=== PATIENT | female | born 1950 | race Caucasian/White ===

== ENCOUNTER 2019-11-27 11:27 | Emergency (ER) | payer MEDICARE, BC ==
--- NOTE | 2019-11-27 12:03 | EDM.PDOC ---
ED HPI GENERAL MEDICAL PROBLEM - General Chief Complaint: Skin Complaint Stated Complaint: BUG BITE RIGHT BREAST Time Seen by Provider: 11/27/19 11:57 Source of Information: Reports: Patient, Other (friend) History Limitations: Reports: No Limitations - History of Present Illness INITIAL COMMENTS - FREE TEXT/NARRATIVE: 69 year old female present to [place] [facility] with a friend for evaluation due to big bite on right medial anterior breast which occurred a few days ago due to a mayfly bite. The area is irritated and itching but not painful. Patient has not take any medications for pain or itching or insect bite. Patient has other systemic symptoms likely chills, sweats, fatigue and general malaise which has been going on the for the same amount of time as the insect bited. Patient adamantly denies tick bite or risk for tick borne illness. Patient feel too tired to work due to general fatigue and malaise. 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 After further questioning, patient admits to dysuria, urinary frequency and urgency which started a few weeks ago and getting worse. Patient has had mild headache which is too out of normal for her. Patient states her appetite has decreased over the same period of time. - Related Data Allergies Allergy/AdvReac Type Severity Reaction Status Date / Time No Known Allergies Allergy Verified 11/27/19 11:46 Home Meds: Home Meds Ibuprofen [Advil] 400 mg PO Q6H 12/09/15 [History] Latanoprost [Xalatan 0.005% Ophth Soln] 2.5 ml EYEBOTH BEDTIME 12/09/15 [History] timoloL maleate [Timoptic 0.5% Ophth Soln] 1 drop EYEBOTH BID 12/09/15 [History] Potassium Chloride [Klor-Con M20] 20 meq PO DAILY 5 Days #5 tab.er.prt 11/27/19 [Rx] cephALEXin [Keflex] 500 mg PO QID 10 Days #30 capsule 11/27/19 [Rx] Past Medical History HEENT History: Reports: Glaucoma Cardiovascular History: Reports: None Respiratory History: Reports: None Genitourinary History: Reports: Other (See Below) Other Genitourinary History: 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: Musculoskeletal History: Reports: Arthritis - Infectious Disease History Infectious Disease History: Reports: Chicken Pox, Measles, Shingles - Past Surgical History Head Surgeries/Procedures: Reports: None HEENT Surgical History: Reports: Eye Surgery GI Surgical History: Reports: Appendectomy, Cholecystectomy, EGD Female Surgical History: Reports: Tubal Ligation Social & Family History - Tobacco Use Smoking Status *Q: Never Smoker - Caffeine Use Caffeine Use: Reports: Soda - Recreational Drug Use Recreational Drug Use: No ED ROS GENERAL - Review of Systems Review Of Systems: Comprehensive ROS is negative, except as noted in HPI. ED EXAM, SKIN/RASH Exam: See Below Exam Limited By: No Limitations (patient minimizes symptoms and concerns) General Appearance: Alert, WD/WN, Mild Distress (uncomfortable with malaise and general fatigue) Eye Exam: Bilateral Eye: EOMI, Normal Inspection Ears: Normal External Exam, Hearing Grossly Normal Nose: Normal Inspection Throat/Mouth: Normal Inspection, Normal Voice, No Airway Compromise Head: Atraumatic Neck: Normal Inspection, Supple, Full Range of Motion Respiratory/Chest: No Respiratory Distress, Lungs Clear, Normal Breath Sounds, Chest Non-Tender, Other (right breast: small open wound superior midline (scratched off scab).) Cardiovascular: Normal Peripheral Pulses, Regular Rate, Rhythm GI/Abdominal: Tender (suprapubic discomfort noted) (Female) Exam: Deferred Rectal (Female) Exam: Deferred Back Exam: CVA Tenderness (R) (left worse than right), CVA Tenderness (L) Extremities: Normal Inspection, Normal Range of Motion, Non-Tender, Normal Capillary Refill, Pedal Edema (slight but not new) Neurological: Alert, Oriented, CN II-XII Intact, Normal Cognition, Normal Gait Psychiatric: Normal Affect, Normal Mood Location, Skin: Other EKG INTERPRETATION EKG Date: 11/27/19 Time: 12:54 Rhythm: NSR [place]: LAD-Left [place] Deviation P-Wave: Present QRS: Normal ST-T: Other (non-specific) QT: Normal Course - Vital Signs Last Recorded V/S: Last Vital Signs Temp 36.7 C 11/27/19 11:49 Pulse 68 11/27/19 14:08 Resp 16 11/27/19 14:08 BP 120/66 11/27/19 14:08 Pulse Ox 98 06/21/20 14:08 - Orders/Labs/Meds Orders: Active Orders 24 hr Category Date Time Status EKG Documentation Completion [RC] ASDIRECTED Care 11/27/19 14:32 Active Peripheral IV Care [RC] . DIRECTED Care 11/27/19 13:36 Active BABESIA MICROTI ANTIBODY PANEL Urgent Lab 11/27/19 14:07 Received CULTURE URINE [RM] Stat Lab 11/27/19 14:21 Received HUMAN GRANULOCYTIC JOSE-HGE Urgent Lab 11/27/19 14:07 Received LYME, TOTAL AB TEST/REFLEX Routine Lab 11/27/19 14:07 Received Sodium Chloride 0.9% [Normal Saline] 1,000 ml Med 11/27/19 13:45 Active IV ASDIRECTED Sodium Chloride 0.9% [Saline Flush] Med 11/27/19 13:36 Active 10 ml FLUSH ASDIRECTED PRN Peripheral IV Insertion Adult [OM.PC] Urgent Oth 11/27/19 12:07 Ordered Peripheral IV Insertion Adult [OM.PC] Urgent Oth 11/27/19 13:36 Ordered EKG 12 Lead [EK] Urgent Ther 11/27/19 14:32 Ordered Medication Orders Sodium Chloride (Normal Saline) 1,000 mls @ 500 mls/hr IV ASDIRECTED LIZETH Last Admin: 11/27/19 14:07 Dose: 500 mls/hr Documented by: PREILOR Sodium Chloride (Saline Flush) 10 ml FLUSH ASDIRECTED PRN PRN Reason: Keep Vein Open Labs: Laboratory Tests 11/27/19 11/27/19 11/27/19 Range/Units 12:21 12:21 12:21 WBC 3.6 L (4.5-11.0) K/uL RBC 5.42 (3.30-5.50) M/uL Hgb 15.9 H (12.0-15.0) g/dL Hct 44.8 (36.0-48.0) % MCV 83 (80-98) fL MCH 29 (27-31) pg MCHC 36 (32-36) % Plt Count 78 L (150-400) K/uL Neut % (Auto) 32 L (36-66) % Lymph % (Auto) 50 H (24-44) % [place] % (Auto) 10 H (2-6) % Eos % (Auto) 0 L (2-4) % Baso % (Auto) 7 H (0-1) % Sodium 135 L (140-148) mmol/L Potassium 2.8 L* (3.6-5.2) mmol/L Chloride 98 L (100-108) mmol/L Carbon Dioxide 24 (21-32) mmol/L Anion Gap 15.8 H (5.0-14.0) mmol/L BUN 23 H D (7-18) mg/dL Creatinine 0.9 (0.6-1.0) mg/dL Est Cr Clr Drug Dosing 43.26 mL/min Estimated GFR (MDRD) > 60 (>60) Glucose 249 H (74-106) mg/dL Lactic Acid (0.4-2.0) mmol/L Calcium 9.1 (8.5-10.1) mg/dL Magnesium 2.0 (1.8-2.4) mg/dL Total Bilirubin 1.1 H (0.2-1.0) mg/dL AST 65 H D (15-37) U/L ALT 76 D (12-78) U/L Alkaline Phosphatase 97 (46-116) U/L Total Protein 7.1 (6.4-8.2) g/dL Albumin 3.4 (3.4-5.0) g/dL Globulin 3.7 H (2.3-3.5) g/dL Albumin/Globulin Ratio 0.9 L (1.2-2.2) Urine Color (YELLOW) Urine Appearance (CLEAR) Urine pH (5.0-8.0) Ur Specific [place] (1.008-1.030) Urine Protein (NEGATIVE) mg/dL Urine Glucose (UA) (NEGATIVE) mg/dL Urine Ketones (NEGATIVE) mg/dL Urine Occult Blood (NEGATIVE) Urine Nitrite (NEGATIVE) Urine Bilirubin (NEGATIVE) Urine Urobilinogen (0.2-1.0) EU/dL Ur Leukocyte Esterase (NEGATIVE) Urine RBC (0-5) Urine WBC (0-5) Ur Epithelial Cells Urine Bacteria 11/27/19 11/27/19 Range/Units 12:21 14:21 WBC (4.5-11.0) K/uL RBC (3.30-5.50) M/uL Hgb (12.0-15.0) g/dL Hct (36.0-48.0) % MCV (80-98) fL MCH (27-31) pg MCHC (32-36) % Plt Count (150-400) K/uL Neut % (Auto) (36-66) % Lymph % (Auto) (24-44) % [place] % (Auto) (2-6) % Eos % (Auto) (2-4) % Baso % (Auto) (0-1) % Sodium (140-148) mmol/L Potassium (3.6-5.2) mmol/L Chloride (100-108) mmol/L Carbon Dioxide (21-32) mmol/L Anion Gap (5.0-14.0) mmol/L BUN (7-18) mg/dL Creatinine (0.6-1.0) mg/dL Est Cr Clr Drug Dosing mL/min Estimated GFR (MDRD) (>60) Glucose (74-106) mg/dL Lactic Acid 1.5 (0.4-2.0) mmol/L Calcium (8.5-10.1) mg/dL Magnesium (1.8-2.4) mg/dL Total Bilirubin (0.2-1.0) mg/dL AST (15-37) U/L ALT (12-78) U/L Alkaline Phosphatase (46-116) U/L Total Protein (6.4-8.2) g/dL Albumin (3.4-5.0) g/dL Globulin (2.3-3.5) g/dL Albumin/Globulin Ratio (1.2-2.2) Urine Color Other A (YELLOW) Urine Appearance Slightly cloudy A (CLEAR) Urine pH 5.5 (5.0-8.0) Ur Specific [place] 1.015 (1.008-1.030) Urine Protein 100 H (NEGATIVE) mg/dL Urine Glucose (UA) Negative (NEGATIVE) mg/dL Urine Ketones 15 H (NEGATIVE) mg/dL Urine Occult Blood Small H (NEGATIVE) Urine Nitrite Negative (NEGATIVE) Urine Bilirubin Moderate H (NEGATIVE) Urine Urobilinogen 1.0 (0.2-1.0) EU/dL Ur Leukocyte Esterase Large H (NEGATIVE) Urine RBC Not seen (0-5) Urine WBC >100 H (0-5) Ur Epithelial Cells Not seen Urine Bacteria Many Meds: Medications Generic Name Dose Route Start Last Admin Trade Name Hao PRN Reason Stop Dose Admin Sodium Chloride 1,000 mls @ 500 mls/hr 11/27/19 13:45 11/27/19 14:07 Normal Saline IV 500 mls/hr ASDIRECTED LIZETH Administration Sodium Chloride 10 ml 11/27/19 13:36 Saline Flush FLUSH ASDIRECTED PRN Keep Vein Open Discontinued Medications Generic Name Dose Route Start Last Admin Trade Name Hao PRN Reason Stop Dose Admin Acetaminophen 325 mg 11/27/19 16:16 11/27/19 16:42 Tylenol PO 11/27/19 16:17 325 mg NOW ONE Administration Acetaminophen 325 mg 11/27/19 16:38 11/27/19 16:42 Tylenol PO 11/27/19 16:39 325 mg NOW ONE Administration Ceftriaxone Sodium 2 gm/ 50 mls @ 100 mls/hr 11/27/19 15:11 11/27/19 15:23 Sodium Chloride IV 11/27/19 15:40 100 mls/hr ONETIME ONE Administration Potassium Chloride 20 meq 11/27/19 13:24 11/27/19 13:50 Klor-Con M20 PO 11/27/19 13:25 20 meq ONETIME ONE Administration Sodium Chloride 10 ml 11/27/19 12:07 Saline Flush FLUSH ASDIRECTED PRN Keep Vein Open - Re-Assessments/Exams Free Text/Narrative Re-Assessment/Exam: Potassium reading was low 2.8. K Dur 20 meq given oral. EKG was completed: No acute changes noted. Blood Sugar is above 200 which is concerning for type II diabetes vs metabolic dysfunction. 11/27/19 14:45 Urine appears to be infected with increased likelihood of renal involvement with additional symptoms during visit. Patient was given Rocephin 2GM IV x 1. Patient offered something to eat but declined due to poor appetite. Patient tolerated Rocephin, Tylenol, Potassium po and IVF well. 11/27/19 15:20 Patient is feeling much improved after IVF, IV antibiotics and time. Reviewed abnormal test result including: elevated blood sugar, low potassium with lower platelets/WBC and slight elevation of LFTs so tick borne illness may be the course of general malaise and fatigue. Discussed note for work this week until follow-up with Dr Silverman him will likely need to repeat blood test, review urine culture and tick borne disease testing and recheck insect bite for resolution. Patient notes she has also had very eatery stools over the last few weeks with decreased appetite. 11/27/19 17:13 Departure - Departure Time of Disposition: 16:47 Disposition: Home, Self-Care 01 Clinical Impression: Kidney infection, Insect bite, Hypokalemia, Hyperglycemia - Discharge Information Prescriptions: cephALEXin [Keflex] 500 mg PO QID 10 Days #30 capsule Potassium Chloride [Klor-Con M20] 20 meq PO DAILY 5 Days #5 tab.er.prt Instructions: Pyelonephritis, Adult, Pyelonephritis, Adult, [id number], Hypokalemia, Potassium Content of Foods, Insect Bite, Adult Referrals: Corbin Silverman MD [Primary Care Provider] - Forms: ED Department Discharge Additional Instructions: 1. Keflex 500mg QID x 10 days for urinary tract infection likely progressed to kidney infection with symptoms and urine test results. 2. Rocephin 2 GM given during ER visit. Start oral antibiotic this evening. 3. Potassium 20 meq daily x 5 days with repeat blood work later this week and review urine culture results. 4. NO work until follow-up appointment with Dr Silverman this week. 5. Increased fluid intake. Return to ER sooner if unable to keep medications down or vomiting occurs. 6. Some people need hospitalization for your presenting symptoms today 7. Topica hydrocortisone cream to right breast in sect bite every 12 hours x 14 days. 8. Follow-up with PCP regarding tick borne illness blood work drawn today. Sepsis Event Note (ED) - Evaluation Sepsis Screening Result: No Definite Risk - Focused Exam Vital Signs: Vital Signs Temp Pulse Resp BP Pulse Ox 11/27/19 14:08 68 16 120/66 98 11/27/19 11:49 36.7 C 71 16 115/79 96 11/27/19 11:46 36.7 C 71 16 115/79 96 11/27/19 11:41 36.7 C 71 16 115/79 96 - My Orders Last 24 Hours: My Active Orders 11/27/19 12:07 Peripheral IV Insertion Adult [OM.PC] Urgent 11/27/19 13:36 Peripheral IV Care [RC] . DIRECTED Sodium Chloride 0.9% [Saline Flush] 10 ml FLUSH ASDIRECTED PRN Peripheral IV Insertion Adult [OM.PC] Urgent 11/27/19 13:45 Sodium Chloride 0.9% [Normal Saline] 1,000 ml IV ASDIRECTED 11/27/19 14:07 BABESIA MICROTI ANTIBODY PANEL Urgent HUMAN GRANULOCYTIC JOSE-HGE Urgent LYME, TOTAL AB TEST/REFLEX Routine 11/27/19 14:21 CULTURE URINE [RM] Stat 11/27/19 14:32 EKG Documentation Completion [RC] ASDIRECTED EKG 12 Lead [EK] Urgent - Assessment/Plan Last 24 Hours: My Active Orders 11/27/19 12:07 Peripheral IV Insertion Adult [OM.PC] Urgent 11/27/19 13:36 Peripheral IV Care [RC] . DIRECTED Sodium Chloride 0.9% [Saline Flush] 10 ml FLUSH ASDIRECTED PRN Peripheral IV Insertion Adult [OM.PC] Urgent 11/27/19 13:45 Sodium Chloride 0.9% [Normal Saline] 1,000 ml IV ASDIRECTED 11/27/19 14:07 BABESIA MICROTI ANTIBODY PANEL Urgent HUMAN GRANULOCYTIC JOSE-HGE Urgent LYME, TOTAL AB TEST/REFLEX Routine 11/27/19 14:21 CULTURE URINE [RM] Stat 11/27/19 14:32 EKG Documentation Completion [RC] ASDIRECTED EKG 12 Lead [EK] Urgent
[2019-11-27] MEDS ORDERED: Sodium Chloride 0.9% 10 ML Syringe FLUSH PRN ×2 (12:07→13:36)
[2019-11-27] MEDS ORDERED: Potassium Chloride 20 MEQ Tab.ER PO ONE (13:24)
[2019-11-27] MEDS ORDERED: Sodium Chloride 0.9% 1,000 ML IV SCH (13:45)
[2019-11-27 14:09] VITALS: BP 120/66; PULSE 68
[2019-11-27] MEDS ORDERED: cefTRIAXone 2 GM in Sodium Chloride 0.9% 50 ML IV ONE (15:11)
[2019-11-27] MEDS ORDERED: Acetaminophen 325 MG Tab PO ONE ×2 (16:16→16:38)
[2019-11-30 11:11] LABS: LYME IGG/IGM AB <0.91 ISR (0.00-0.90)
[2019-11-30 14:11] LABS: HGE IGG TITER Negative (Neg:<1:64); HGE IGM TITER Negative (Neg:<1:20)
[2019-12-01 17:13] LABS: BABESIA MICROTI IGM 1:20 (Neg:<1:10)
== END 2019-11-27 17:17 | disposition home or self-care (01) ==
LOC: JP.ED 11:27
DX: S20.161A Insect bite (nonvenomous) of breast, right breast, initial encounter (principal); E87.6 Hypokalemia; R73.9 Hyperglycemia, unspecified; N15.9 Renal tubulo-interstitial disease, unspecified; M19.90 Unspecified osteoarthritis, unspecified site; W57.XXXA Bitten or stung by nonvenomous insect and other nonvenomous arthropods, initial encounter
CPT/HCPCS: 36415; 80053; 81001; 83605; 83735; 85025; 86618; 86666; 86753; 87086; 87088; 87186; 93005; 96361; 96365; 99283; A9270; J0696; J7030; J7050; 93010

== ENCOUNTER 2019-12-09 16:23 | Emergency (ER) | payer MEDICARE, BC ==
[2019-12-09 17:36] VITALS: BP 149/69; PULSE 84
--- NOTE | 2019-12-09 18:23 | EDM.PDOC ---
ED HPI GENERAL MEDICAL PROBLEM - General Chief Complaint: Genitourinary Problem Stated Complaint: LOWER BACK PAIN Time Seen by Provider: 12/09/19 17:55 Source of Information: Reports: Patient, Family History Limitations: Reports: No Limitations - History of Present Illness INITIAL COMMENTS - FREE TEXT/NARRATIVE: 69-year-old female who was seen 3 weeks ago with a UTI, grew E. coli and was placed on cephalexin was better but finished the medication on Thursday, 4 days ago. This morning she started having increasing urinary frequency and some vague lower back discomfort and right flank pain. No significant dysuria, just some "itching". No fever or chills, no nausea or vomiting, she does not feel real ill. Onset: Gradual Duration: Hour(s): (Symptoms for 12 hours) Location: Reports: Back (Lower back and mild right flank discomfort) Associated Symptoms: Denies: Chest Pain, Cough, Fever/Chills, Headaches, Malaise, Nausea/Vomiting, Shortness of Breath, Weakness Bilateral Flank Pain Score (Numeric/FACES): 8 - Related Data Allergies Allergy/AdvReac Type Severity Reaction Status Date / Time No Known Allergies Allergy Verified 12/09/19 17:44 Home Meds: Home Meds Ibuprofen [Advil] 400 mg PO Q6H 12/09/15 [History] Latanoprost [Xalatan 0.005% Ophth Soln] 2.5 ml EYEBOTH BEDTIME 12/09/15 [History] timoloL maleate [Timoptic 0.5% Ophth Soln] 1 drop EYEBOTH BID 12/09/15 [History] Past Medical History HEENT History: Reports: Glaucoma Cardiovascular History: Reports: None Respiratory History: Reports: None Gastrointestinal History: Reports: None Genitourinary History: Reports: Other (See Below) Other Genitourinary History: 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: Musculoskeletal History: Reports: Arthritis - Infectious Disease History Infectious Disease History: Reports: Chicken Pox, Measles, Shingles - Past Surgical History Head Surgeries/Procedures: Reports: None HEENT Surgical History: Reports: Eye Surgery GI Surgical History: Reports: Appendectomy, Cholecystectomy, EGD Female Surgical History: Reports: Tubal Ligation Musculoskeletal Surgical History: Reports: None Dermatological Surgical History: Reports: None Social & Family History - Tobacco Use Smoking Status *Q: Never Smoker Second Hand Smoke Exposure: No - Caffeine Use Caffeine Use: Reports: Coffee - Recreational Drug Use Recreational Drug Use: No ED ROS GENERAL - Review of Systems Review Of Systems: See Below Constitutional: Denies: Fever, Malaise, Decreased Appetite HEENT: Reports: No Symptoms Respiratory: Denies: Shortness of Breath Cardiovascular: Denies: Chest Pain GI/Abdominal: Denies: Abdominal Pain, Nausea, Vomiting : Reports: Flank Pain (Right side), Frequency Musculoskeletal: Reports: Back Pain Skin: Reports: No Symptoms Neurological: Reports: No Symptoms ED EXAM, GENERAL - Physical Exam Exam: See Below Exam Limited By: No Limitations General Appearance: Alert, No Apparent Distress, Other Head: Atraumatic Respiratory/Chest: No Respiratory Distress, Lungs Clear GI/Abdominal: Non-Tender Back Exam: Other (She does react to some discomfort with percussion of the right flank, and has bilateral lower LS paralumbar discomfort) Neurological: Alert, Oriented Skin Exam: Warm, Dry Course - Vital Signs Last Recorded V/S: Last Vital Signs Temp 98.0 F 12/09/19 17:42 Pulse 84 12/09/19 17:42 Resp 15 12/09/19 17:42 BP 149/69 H 12/09/19 17:42 Pulse Ox 96 12/09/19 17:42 - Orders/Labs/Meds Orders: Active Orders 24 hr Category Date Time Status CULTURE URINE [RM] Stat Lab 12/09/19 18:23 Received Labs: Laboratory Tests 12/09/19 Range/Units 17:55 Urine Color Yellow (YELLOW) Urine Appearance Cloudy A (CLEAR) Urine pH 6.5 (5.0-8.0) Ur Specific [place] 1.025 (1.008-1.030) Urine Protein Trace H (NEGATIVE) mg/dL Urine Glucose (UA) Negative (NEGATIVE) mg/dL Urine Ketones 40 H (NEGATIVE) mg/dL Urine Occult Blood Small H (NEGATIVE) Urine Nitrite Negative (NEGATIVE) Urine Bilirubin Small H (NEGATIVE) Urine Urobilinogen 1.0 (0.2-1.0) EU/dL Ur Leukocyte Esterase Large H (NEGATIVE) Urine RBC 0-5 (0-5) Urine WBC 75-100 H (0-5) Ur Epithelial Cells Many Amorphous Sediment Many Urine Bacteria Moderate Urine Mucus Moderate - Re-Assessments/Exams Free Text/Narrative Re-Assessment/Exam: 12/09/19 18:22 UA again shows significant WBCs and bacteria. A culture was reinitiated the patient was placed on Macrobid twice daily for the next 7 days. She will recheck in 3 to 4 days if not improving satisfactorily or return sooner if worsening such as fever or vomiting. Departure - Departure Time of Disposition: 18:43 Disposition: Home, Self-Care 01 Clinical Impression: UTI, Urinary tract infectious disease - Discharge Information Instructions: Urinary Tract Infection, Adult, [id number] Referrals: Corbin Silverman MD [Primary Care Provider] - Forms: ED Department Discharge Care Plan Goals: Take antibiotic until gone, stay hydrated with water and increase activity and diet as tolerated. Recheck in 3 to 4 days if not improving satisfactorily, or consider rechecking sooner if worsening such as fever, vomiting or increased pain. Sepsis Event Note (ED) - Evaluation Sepsis Screening Result: No Definite Risk - Focused Exam Vital Signs: Vital Signs Temp Pulse Resp BP Pulse Ox 12/09/19 17:42 98.0 F 84 15 149/69 H 96 12/09/19 17:35 98.0 F 84 15 149/69 H 96 - My Orders Last 24 Hours: My Active Orders 12/09/19 18:23 CULTURE URINE [RM] Stat - Assessment/Plan Last 24 Hours: My Active Orders 12/09/19 18:23 CULTURE URINE [RM] Stat
== END 2019-12-09 18:43 | disposition home or self-care (01) ==
LOC: JP.ED 16:23
DX: N39.0 Urinary tract infection, site not specified (principal); Z79.899 Other long term (current) drug therapy
CPT/HCPCS: 81001; 87086; 87088; 87186; 99283

== ENCOUNTER 2020-01-10 07:11 | Day surgery (SDC) | payer MEDICARE, BC ==
[~2020-01-10 07:11] MED LIST: Midazolam 1 MG/ML 2 ML SDV ONE; Propofol 200 MG/20 ML SDV ONE; fentaNYL 100 MCG/2 ML SDV ONE
[2020-01-10] MEDS ORDERED: Dextrose 5%-Lactated Ringers 1,000 ML IV SCH (07:45)
[2020-01-10 09:09] VITALS: BP 123/58; PULSE 51
--- NOTE | 2020-01-16 13:56 | OR ---
DATE OF PROCEDURE: 01/10/2020 SURGEON: Abdoulaye Washington MD PREOPERATIVE DIAGNOSES: Family history of colon carcinoma and personal history of colon polyps. POSTOPERATIVE DIAGNOSES: 1. Uncomplicated left diverticulosis. 2. No evidence of recurrent polyps. OPERATIVE PROCEDURE: Flexible colonoscopy. ANESTHESIA: IV sedation. INDICATION FOR PROCEDURE: A 69-year-old presenting for followup colonoscopy. She has a family history of colon carcinoma as well as personal history of colon polyps in the past. Plan is to proceed with a colonoscopy with biopsies and/or polypectomy as indicated. Potential risks including bleeding and perforation were discussed and the patient wishes to proceed. DETAILS OF PROCEDURE: The patient was taken to the operating room and the patient placed in the left lateral decubitus position. IV sedation was administered after which the initial digital rectal exam was performed and was unremarkable. Colonoscope was then passed into the rectum with retroflexion revealing uncomplicated hemorrhoidal columns. The scope was eventually passed to the level of the cecum. The prep was quite good with only a small amount of liquid stool being present. To that level, there was some uncomplicated diverticulosis on the left colon. Otherwise, there are no areas of colitis and/or polyps or other signs of neoplasia. The scope was then withdrawn, the above findings reconfirmed, and the procedure concluded. The patient was taken to the recovery room in satisfactory condition. Recommendation would be to repeat the colonoscopy in 5 years. Abdoulaye Washington MD /[id number]
== END 2020-01-10 09:24 | disposition home or self-care (01) ==
LOC: JP.SDS 07:11
PROVIDERS: ATTEND Surgery
DX: Z12.11 Encounter for screening for malignant neoplasm of colon (principal); K57.30 Diverticulosis of large intestine without perforation or abscess without bleeding; K64.9 Unspecified hemorrhoids; Z80.0 Family history of malignant neoplasm of digestive organs; Z86.010 Personal history of colon polyps
CPT/HCPCS: G0105; J2250; J2704; J3010; J7121

== ENCOUNTER 2020-01-23 07:20 | Inpatient (IN) | payer MEDICARE, BC ==
[~2020-01-23 07:20] MED LIST changes: +Dexamethasone 4 MG/ML SDV ONE; +Glycopyrrolate 0.2 MG/ML 5 ML MDV ONE; +Isosulfan Blue 5 ML SDV ONE; -Midazolam 1 MG/ML 2 ML SDV ONE; +Neostigmine Methylsulfate 1 MG/ML 5 ML Syringe ONE; +Ondansetron 4 MG/2 ML SDV ONE; +Rocuronium 50 MG/5 ML Vial ONE; +Succinylcholine 200 MG/10 ML MDV ONE; -fentaNYL 100 MCG/2 ML SDV ONE; +fentaNYL 250 MCG/5 ML SDV ONE
[2020-01-23] MEDS ORDERED: Acetaminophen 500 MG Tab PO ONE (07:30)
[2020-01-23] MEDS ORDERED: ceFAZolin 2 GM in Premix Bag 1 BAG IV ONE (08:00)
[2020-01-23] MEDS: Dextrose 5%-Lactated Ringers 1,000 ML IV SCH ×2 (08:49→18:18)
--- NOTE | 2020-01-23 09:55 | CR ---
CHEST: 2 view CLINICAL HISTORY:History of breast cancer COMPARISON:Rib study 2009 FINDINGS: The heart size, pulmonary vascularity and hilar structures are normal. No infiltrate effusion or pneumothorax is seen. There is an ovoid subcentimeter nodular density in the right infrahilar region. This is superimposed the end of the extruded. IMPRESSION: No acute infiltrate Right lung base nodular density. This may represent superimposition. Pulmonary nodules not excluded. CT chest without contrast should be considered
[2020-01-23] MEDS ORDERED: Naloxone 0.4 MG/ML SDV IVPUSH PRN (09:58)
[2020-01-23] MEDS ORDERED: HYDROmorphone/Normal Saline 15 MG/30 ML PCA IV PRN (09:58)
[2020-01-23] MEDS ORDERED: Sodium Chloride 0.9% 10 ML ONE (10:07)
[2020-01-23] MEDS ORDERED: ceFAZolin 1 GM Vial ONE (10:07)
[2020-01-23] MEDS ORDERED: fentaNYL 250 MCG/5 ML SDV ONE ×2 (10:15→11:13)
[2020-01-23] MEDS ORDERED: Lactated Ringers 1,000 ML ONE (10:52)
[2020-01-23] MEDS ORDERED: Naloxone 0.4 MG/ML SDV IV PRN (11:00)
[2020-01-23] MEDS ORDERED: hydrOXYzine HCL 100 MG/2 ML SDV IM PRN (12:38)
[2020-01-23] MEDS ORDERED: Ondansetron 4 MG/2 ML SDV IVPUSH PRN (12:40)
[2020-01-23] MEDS: Acetaminophen 500 MG Tab PO SCH ×2 (16:14→23:34)
[2020-01-23] MEDS: ceFAZolin 2 GM in Premix Bag 1 BAG IV SCH (18:19)
[2020-01-23] MEDS ORDERED: Tranexamic Acid 750 MG in Sodium Chloride 0.9% 50 ML IV ONE (19:00)
[2020-01-23] MEDS: LATANOPROST 0.005% EYEBOTH SCH (20:07)
[2020-01-23] MEDS: Timolol Maleate 0.5% Ophth Soln 5 ML (PTOM) EYEBOTH SCH (20:08)
[2020-01-23] MEDS ORDERED: Latanoprost 0.005% Ophth Soln 2.5 ML Bottle EYEBOTH SCH (21:00)
[2020-01-23] MEDS ORDERED: Timolol Maleate 0.5% Ophth Soln 5 ML Bottle EYEBOTH SCH (21:00)
[2020-01-23] MEDS ORDERED: Ciprofloxacin 0.3% Ophth Soln 5 ML Bottle EYEBOTH SCH (21:00)
[2020-01-24] MEDS: ceFAZolin 2 GM in Premix Bag 1 BAG IV SCH ×2 (03:20→09:57)
[2020-01-24] MEDS: Dextrose 5%-Lactated Ringers 1,000 ML IV SCH (05:40)
[2020-01-24] MEDS ORDERED: HYDROmorphone 2 MG Tab PO PRN (07:09)
[2020-01-24] MEDS: Acetaminophen 160 MG Tab,Disintegrating PO SCH ×3 (08:20→20:22)
[2020-01-24] MEDS: Timolol Maleate 0.5% Ophth Soln 5 ML (PTOM) EYEBOTH SCH ×2 (08:20→20:22)
[2020-01-24] MEDS: DORZOLAMIDE 2% EYERT SCH (08:20)
--- NOTE | 2020-01-24 10:24 | PN ---
DATE OF SERVICE: 01/24/2020 SUBJECTIVE: Carola is postop day 1. She states her pain is controlled. She has no questions or concerns. Vital signs have been stable. She has been up ambulating. REVIEW OF SYSTEMS: Remainder of review of systems negative for any pertinent positives and negatives. OBJECTIVE: GENERAL: Carola is a pleasant 69-year-old female. She is alert and oriented. VITAL SIGNS: TPR at 0321, 97.5, 54, 16, blood pressure 102/38. HEENT: Negative. NECK: Supple. HEART: Regular rate and rhythm. LUNGS: Clear. ABDOMEN: Soft, nontender. EXTREMITIES: Without peripheral edema. The dressing dry and intact. SHILPA drain 1 and 2 put out 120 and 185 respectively. ASSESSMENT: 1. Right modified radical mastectomy with frozen section. 2. Injection procedure for identification of sentinel lymph node. POSTOPERATIVE DIAGNOSIS: Right breast cancer with extensive metastatic axillary lymph node. Date of surgery: 01/23/2020. Surgeon: Abdoulaye Washington MD. PLAN: 1. Saline lock IV if oral intake adequate. 2. Regular diet. 3. Discontinue BANK COURIER. Continuous pulse ox. 4. Scheduled Tylenol 650 mg every 6 hours scheduled. 5. Dilaudid 2 mg 1 to 2 every 4 hours p.r.n. pain. Continue use of incentive spirometer. 6. We will evaluate p.r.n. or in a.m. Daria Rahman PA-C /[id number]
[2020-01-24] MEDS: LATANOPROST 0.005% EYEBOTH SCH (20:22)
[2020-01-25] MEDS: Acetaminophen 160 MG Tab,Disintegrating PO SCH ×2 (01:52→09:10)
[2020-01-25] MEDS: DORZOLAMIDE 2% EYERT SCH (09:13)
[2020-01-25] MEDS: Timolol Maleate 0.5% Ophth Soln 5 ML (PTOM) EYEBOTH SCH (09:13)
[2020-01-25 10:43] VITALS: BP 125/45; PULSE 69
--- NOTE | 2020-01-25 20:11 | DISCH ---
ADMISSION DIAGNOSES: 1. Right breast cancer. 2. Chronic back pain. DISCHARGE DIAGNOSES: 1. Right modified radical mastectomy with frozen section. 2. Injection procedure for identification of sentinel lymph nodes. POSTOPERATIVE DIAGNOSIS: Right breast cancer with extensive metastatic axillary lymph nodes. Date of surgery 01/23/2020. Surgeon: Abdoulaye Washington MD. HISTORY: Carola Garcia is a pleasant 69-year-old female who had a positive biopsy on her right breast for cancer. After preoperative evaluation and discussion of possible risks and possible complications, she wished to proceed with surgical procedure. HOSPITAL COURSE: Carola had her surgery on 01/23/2020. She had no operative complications. On postoperative day #1, she was changed to oral pain medication. She was taught how to strip, drain, empty and measure her SHILPA drains. Her activity was good. Pain was managed with Tylenol and she was able to be discharged to home on postoperative day 2. PHYSICAL EXAMINATION: GENERAL: Carola Garcia is a 69-year-old female. VITAL SIGNS: Height 4 feet, 11.84 inches. Weight is 145 pounds. TPR at 0700 is 97.8, 77, 16. Blood pressure 125/58. HEENT: Negative. NECK: Supple. HEART: Regular rate and rhythm. LUNGS: Clear. Right mastectomy incision looks good. There is no fluid collection. SHILPA drains are draining a red drainage of 55 and 100 mL respectively. ABDOMEN: Soft, nontender. EXTREMITIES: Without peripheral edema. DISPOSITION: Discharged to home. CONDITION: Stable and improving. FOLLOWUP: Appointment with Daria Rahman PA-C on 02/02/2020 at 8:45 a.m. She has an Oncology appointment on 02/01/2020 at 9 a.m. To resume home medication that she was taking prior to admission. DIET: Usual diet as tolerated. Drink 8 to 10 glasses of water a day. ACTIVITY: No lifting greater than 10 pounds for 6 weeks. Driving: Do not drive for 1 week or while on pain medication. Shower/bathing: May shower. DISCHARGE INSTRUCTIONS: Notify provider if any fever, increased pain, swelling, redness, drainage, nausea, vomiting. Keep site clean and dry. Wound incision care: Strip, empty, measure, and record SHILPA drains 4 times a day. Bring record of drainage to clinic appointments. Special instruction: Use incentive spirometer 10 times every hour while awake.
--- NOTE | 2020-02-05 13:36 | OR ---
DATE OF PROCEDURE: 01/23/2020 SURGEON: Abdoulaye Washington MD PREOPERATIVE DIAGNOSIS: Carcinoma of the right breast. POSTOPERATIVE DIAGNOSIS: Carcinoma of the right breast with extensive metastatic axillary lymph nodes. OPERATIVE PROCEDURES: 1. Right modified radical mastectomy with frozen section (13581). 2. Injection procedure for identification of sentinel lymph nodes (37632). ANESTHESIA: General. RECOVERY UNIT OPERATOR: Daria Rahman PA-C INDICATIONS FOR PROCEDURE: This is a 69-year-old, recently diagnosed by core needle biopsy with an infiltrating ductal carcinoma in the upper outer quadrant of the right breast. The patient has equivocal axillary findings. The plan is to proceed with right modified radical mastectomy with sentinel lymph node biopsies. Isosulfan blue was used to identify the sentinel lymph node. Potential risks of the procedure including bleeding, infection, injury to the nerves in the area, possible local or distant tumor recurrence, and need for additional treatment such as chemotherapy and radiation treatment post procedure were gone over, and the patient wishes to proceed. OPERATIVE FINDINGS: The patient's breast dissection was clean and there was no evidence of any encroachment of the primary tumor at the planes of dissection. However, in the axilla, there were multiple hard lymph nodes. Frozen section confirmed metastatic disease in 3 of these with the higher nodes that extended well up into the upper aspect of the axilla including to level 3. The highest axillary nodes, i.e., the level 3 nodes were sent as a separate specimen. At the completion of the dissection, all of the lymphatic tissue from the axilla was grossly removed, and the long thoracic and thoracodorsal nerves appeared to be functionally intact. One additional finding in this case was that even though the tumor was upper outer quadrant tumor with isosulfan blue dye injected around it, it was noted during the course of the breast dissection that some lymphatic channels were heading into the internal mammary chain indicating some probable blockade of the lymphatic flow in the direction of the axilla. This would certainly mandate radiation treatment to the internal mammary chain in addition to the axillary and supraclavicular areas. DETAILS OF PROCEDURE: The patient was taken to the operating room and placed in a supine position after general endotracheal anesthesia was induced. The subdermal tissue overlying the mass in the upper outer quadrant was injected with 4 mL of Isosulfan blue dye. The right breast, axilla, and surrounding areas were then prepped and draped, and a transverse elliptical incision was made including the underlying biopsy site and nipple-areolar complex. This was carried down through the skin and subcutaneous tissue. Subcutaneous flaps were then raised superiorly, inferiorly, laterally, and medially to the usual extent, and the breast was reflected off the chest wall in continuity with the pectoralis major fascia. As one approached the axilla, the multiple firm nodes were then identified. Two of these had some blue dye within them and these were sent for frozen section, which did confirm metastatic disease. At that point, the full axillary dissection was initiated given the grossly involved nature of the lymph nodes even to the level 3. Beginning at that level, the nodes were dissected free with electrocautery and the highest noted nodes in the axilla at the level 3 level were then excised and sent as a separate specimen. The axillary vein was then identified and dissected free from the overlying fat. The fatty lymphatic tissues extending inferior to the axillary vein throughout the remainder of level 2 and 3 of the axilla were then sequentially dissected free from the long thoracic and thoracodorsal nerves, and the specimen then delivered from the field. The various vessels were dried with electrocautery and/or clips and sutures as indicated, and the axillary specimen then delivered from the field. At this point, no further problems were noted. Both nerves were confirmed to be functional. Of note, the intercostal brachial nerve was intentionally excised as part of the specimen as this was passing through the grouping of lymph nodes. The wounds were then irrigated with water-containing solution, and 2 Eron-Senior drains were placed through stab wounds inferior to the main incision, and the incision closed with some 3-0 Vicryl subdermal stitch and anand for the skin. Drains were fixed with some 4-0 Vicryl stitch and dressing applied. The patient was taken to the recovery room in satisfactory condition. Physician assistant professor of communication, Daria Rahman, played an essential role in assisting in this case, helping to position the patient, retract structures as needed as well as suturing and cutting sutures when indicated. Her presence improved patient safety and decreased the operative time. Abdoulaye Washington MD /[id number]
== END 2020-01-25 11:30 | disposition home or self-care (01) | DRG 580 ==
LOC: JP.SDS 07:20 → JP.SDSSCHI 07:20 → EDSTATUS 09:45 → JP.2SS 10:45 → UNDOADMIN 10:45 → JP.SDSSCHI 10:45
PROVIDERS: ADMIT Surgery; ATTEND Surgery
PROC: 0HTT0ZZ Resection of Right Breast, Open Approach (ICD-10-PCS; principal; 2020-01-23)
PROC: 07B50ZZ Excision of Right Axillary Lymphatic, Open Approach (ICD-10-PCS; 2020-01-23)
PROC: 3E0W3HZ Introduction of Radioactive Substance into Lymphatics, Percutaneous Approach (ICD-10-PCS; 2020-01-23)
DX: C50.911 Malignant neoplasm of unspecified site of right female breast (principal); C77.3 Secondary and unspecified malignant neoplasm of axilla and upper limb lymph nodes; E87.6 Hypokalemia; G89.4 Chronic pain syndrome; E11.9 Type 2 diabetes mellitus without complications
CPT/HCPCS: 36415; 71046; 71046-26; 80053; 83735; 84100; 86300; 88305; 88307; 88313; 88331; 88332; 88342; 94762; 97161-GP; 97535-GP; A9270-GY; J0330; J0690; J1100; J1170; J2405; J2704; J2710; J3010; J3490; J7050; J7120; J7121; Q9968

== ENCOUNTER 2020-02-24 09:43 | Day surgery (SDC) | payer MEDICARE, BC ==
[~2020-02-24 09:43] MED LIST changes: +Bupivacaine 0.5% 50 ML MDV ONE; -Dexamethasone 4 MG/ML SDV ONE; -Glycopyrrolate 0.2 MG/ML 5 ML MDV ONE; -Isosulfan Blue 5 ML SDV ONE; +Lidocaine 1% with EPINEPHrine 1:100,000 50 ML MDV ONE; +Midazolam 1 MG/ML 2 ML SDV ONE; -Neostigmine Methylsulfate 1 MG/ML 5 ML Syringe ONE; -Ondansetron 4 MG/2 ML SDV ONE; -Rocuronium 50 MG/5 ML Vial ONE; -Succinylcholine 200 MG/10 ML MDV ONE; +fentaNYL 100 MCG/2 ML SDV ONE; -fentaNYL 250 MCG/5 ML SDV ONE
[2020-02-24] MEDS ORDERED: Dextrose 5%-Lactated Ringers 1,000 ML IV SCH (10:15)
[2020-02-24] MEDS ORDERED: Linezolid 600 MG in Premix Bag 1 BAG IV ONE (11:00)
[2020-02-24 15:01] VITALS: BP 127/73; PULSE 52
--- NOTE | 2020-02-27 11:34 | OR ---
DATE OF PROCEDURE: 02/24/2020 SURGEON: Abdoulaye Washington MD PREOPERATIVE DIAGNOSIS: Indication for central venous access. POSTOPERATIVE DIAGNOSIS: Indication for central venous access. OPERATIVE PROCEDURE: Placement of Bard PowerPort via left subclavian vein approach. ANESTHESIA: IV sedation. INDICATIONS FOR PROCEDURE: This is a 69-year-old recently presenting with a locally advanced carcinoma of the right breast. The plan is to proceed with a Bard port for facilitation of chemotherapy. Potential risks of the procedure including bleeding, infection, injury to the lung or vasculature, possibility of the port becoming infected or occluded were reviewed, and the patient wishes to proceed. DETAILS OF PROCEDURE: The patient was taken to the operating room, placed in a supine position. IV sedation was administered after which the upper chest and neck areas were prepped and draped and the left subclavian area was anesthetized with 1% lidocaine and the subclavian vein cannulated. A guidewire passed and manipulated into the superior vena cava. Some additional local was then injected. A transverse infraclavicular incision was made and carried down through the skin and subcutaneous tissue and below the pectoralis major fascia. A pocket for the port was then bluntly constructed behind the pectoralis major fascia. The port was then placed into the pocket and had previously been assembled and flushed with heparinized saline. The catheter was then cut such that the tip would lie in the area of the upper right atrium, and over the introducer and peel-away catheter, the Bard port catheter was placed without difficulty. Good in and outflow was noted through the port which was flushed with heparinized saline. The incision was then closed with some 3-0 Vicryl stitch deep and a 5-0 Vicryl subcuticular stitch. Dressing was applied. The patient was taken to the recovery room in satisfactory condition. There were no evident complications. Abdoulaye Washington MD /[id number]
== END 2020-02-24 14:50 | disposition home or self-care (01) ==
LOC: JP.SDS 09:43
PROVIDERS: ATTEND Surgery
DX: C50.911 Malignant neoplasm of unspecified site of right female breast (principal); Z01.812 Encounter for preprocedural laboratory examination; Z20.828 Contact with and (suspected) exposure to other viral communicable diseases; Z88.1 Allergy status to other antibiotic agents
CPT/HCPCS: 36561; C1788; J1642; J2020; J2250; J2704; J3010; J3490; J7121; U0002

== ENCOUNTER 2023-01-01 11:36 | Emergency (ER) | payer MEDICARE, BC ==
[2023-01-01 14:10] VITALS: BP 120/51; PULSE 66
== END 2023-01-01 14:40 | disposition home or self-care (01) ==
LOC: JP.ED 11:36
DX: M16.11 Unilateral primary osteoarthritis, right hip (principal); K21.9 Gastro-esophageal reflux disease without esophagitis; Z88.5 Allergy status to narcotic agent; Z88.1 Allergy status to other antibiotic agents; Z79.899 Other long term (current) drug therapy
CPT/HCPCS: 73502-26-RT; 73502-RT; 93971-26; 93971-RT; 99283; 99284

== ENCOUNTER 2023-01-06 16:02 | Emergency (ER) | payer MEDICARE, BC ==
[2023-01-06] MEDS ORDERED: Potassium Chloride 10 MEQ Cap.ER PO ONE (16:28)
[2023-01-06 16:54] VITALS: BP 107/59; PULSE 93
== END 2023-01-06 17:37 | disposition home or self-care (01) ==
LOC: JP.ED 16:02
DX: R00.0 Tachycardia, unspecified (principal); K21.9 Gastro-esophageal reflux disease without esophagitis; Z79.899 Other long term (current) drug therapy; Z88.5 Allergy status to narcotic agent; Z88.8 Allergy status to other drugs, medicaments and biological substances
CPT/HCPCS: 93005; 99284; A9270

== ENCOUNTER 2023-02-11 13:08 | Emergency (ER) | payer MEDICARE, BC ==
[2023-02-11 14:27] LABS: BASOPHILS ABSOLUTE AUTO 0.03 K/uL (0.00-0.10); BASOPHILS PERCENT AUTO 0.6 % (0.1-1.3); HEMATOCRIT 37.1 % (34.3-46.0); IMMATURE GRAN ABSOLUTE AUTO 0.03 K/uL (0.00-0.23); IMMATURE GRAN PERCENT AUTO 0.6 % (0.0-0.7); LYMPHOCYTES ABSOLUTE AUTO 0.35 K/uL (0.8-3.3); LYMPHOCYTES PERCENT AUTO 6.7 % (11.4-47.7); MEAN CORPUSCULAR HGB CONC 32.3 g/dL (31.6-35.5); MEAN CORPUSCULAR VOLUME 95.9 fL (81.4-99.0); MONOCYTES ABSOLUTE AUTO 0.48 K/uL (0.20-0.90); MONOCYTES PERCENT AUTO 9.2 % (3.3-12.6); NEUTROPHILS ABSOLUTE AUTO 4.32 K/uL (1.0-7.6); NEUTROPHILS PERCENT AUTO 82.9 % (40.0-78.1); PLATELET COUNT,PLT 360 K/uL (130-375); RED BLOOD CELL COUNT 3.87 M/uL (3.77-5.24); WHITE BLOOD CELL COUNT,WBC 5.2 K/uL (3.2-11.0)
[2023-02-11] MEDS ORDERED: Iopamidol 612 MG/ML 500 ML Multipack Bottle IV ONE (14:52)
[2023-02-11] MEDS ORDERED: Sodium Chloride 0.9% 10 ML Syringe FLUSH ONE (14:52)
[2023-02-11] MEDS ORDERED: Sodium Chloride 0.9% 100 ML IV SCH (15:00)
[2023-02-11 15:25] LABS: A/G RATIO 0.6 (1.2-2.2); ALANINE AMINOTRANSFERASE,ALT 21 U/L (12-78); ALBUMIN 2.5 g/dL (3.4-5.0); ALKALINE PHOSPHATASE 109 U/L (46-116); ASPARTATE AMNIOTRANSFERASE,AST 31 U/L (15-37); BILIRUBIN TOTAL 0.5 mg/dL (0.2-1.0); BLOOD UREA NITROGEN,BUN 9 mg/dL (7-18); CALCIUM 8.9 mg/dL (8.5-10.1); CARBON DIOXIDE,CO2 29 mmol/L (21-32); CHLORIDE,CL 100 mmol/L (100-108); CREATININE 0.5 mg/dL (0.6-1.0); EST CRCL DRUG DOSING (CG) 75.63 mL/min; ESTIMATED GFR 98 mL/min (>60); GLUCOSE RANDOM 137 mg/dL (74-106); POTASSIUM,K 3.7 mmol/L (3.6-5.2); PROTEIN TOTAL,TP 6.9 g/dL (6.4-8.2); SODIUM,NA 135 mmol/L (140-148)
[2023-02-11 15:26] LABS: ANION GAP 9.7 mmol/L (5.0-14.0)
[2023-02-11] MEDS ORDERED: Bisacodyl 10 MG Supp RECTAL ONE (16:18)
[2023-02-11 16:23] LABS: APPEARANCE,URINE SLIGHTLY CLOUDY (CLEAR); BILIRUBIN,URINE NEGATIVE (NEGATIVE); COLOR,URINE YELLOW (YELLOW); GLUCOSE,URINE NEGATIVE (NEGATIVE); KETONES,URINE NEGATIVE (NEGATIVE); LEUKOCYTE ESTERASE,URINE NEGATIVE (NEGATIVE); NITRITE,URINE NEGATIVE (NEGATIVE); OCCULT BLOOD,URINE TRACE-INTACT (NEGATIVE); PROTEIN,URINE NEGATIVE (NEGATIVE); UROBILINOGEN,URINE 0.2 EU/dL (0.2-1.0)
[2023-02-11 16:38] VITALS: BP 130/57; PULSE 47
[2023-02-11 16:44] LABS: AMORPHOUS SEDIMENT,URINE NOT SEEN; BACTERIA,URINE FEW; EPITHELIAL CELLS,URINE FEW; MUCUS,URINE FEW; RBC,URINE 0-5 (0-5); WBC,URINE 0-5 (0-5)
== END 2023-02-11 17:22 | disposition home or self-care (01) ==
LOC: JP.ED 13:08
DX: K59.00 Constipation, unspecified (principal); Z88.5 Allergy status to narcotic agent; Z88.8 Allergy status to other drugs, medicaments and biological substances
CPT/HCPCS: 36415; 74177; 80053; 81001; 82272; 83605; 85025; 99283; 99284; A9270; J3490; Q9967

== ENCOUNTER 2023-02-18 14:38 | Emergency (ER) | payer MEDICARE, BC ==
[2023-02-18 14:59] VITALS: BP 133/66; PULSE 111
[2023-02-18 16:04] LABS: BASOPHILS ABSOLUTE AUTO 0.03 K/uL (0.00-0.10); BASOPHILS PERCENT AUTO 0.6 % (0.1-1.3); EOSINOPHILS PERCENT AUTO 0.4 % (0.0-5.4); HEMATOCRIT 36.8 % (34.3-46.0); HEMOGLOBIN 11.8 g/dL (11.2-15.5); IMMATURE GRAN PERCENT AUTO 0.4 % (0.0-0.7); LYMPHOCYTES ABSOLUTE AUTO 0.36 K/uL (0.8-3.3); LYMPHOCYTES PERCENT AUTO 6.9 % (11.4-47.7); MEAN CORPUSCULAR HEMOGLOBIN 30.3 pg (31.6-35.5); MEAN CORPUSCULAR HGB CONC 32.1 g/dL (31.6-35.5); MEAN CORPUSCULAR VOLUME 94.4 fL (81.4-99.0); MONOCYTES ABSOLUTE AUTO 0.49 K/uL (0.20-0.90); MONOCYTES PERCENT AUTO 9.4 % (3.3-12.6); NEUTROPHILS ABSOLUTE AUTO 4.28 K/uL (1.0-7.6); NEUTROPHILS PERCENT AUTO 82.3 % (40.0-78.1); PLATELET COUNT,PLT 278 K/uL (130-375); WHITE BLOOD CELL COUNT,WBC 5.2 K/uL (3.2-11.0)
[2023-02-18 16:11] LABS: EOSINOPHILS ABSOLUTE AUTO 0.02 K/uL (0.00-0.40); IMMATURE GRAN ABSOLUTE AUTO 0.02 K/uL (0.00-0.23)
[2023-02-18 16:27] LABS: ANION GAP 13.2 mmol/L (5.0-14.0); CALCIUM 9.2 mg/dL (8.5-10.1); CREATININE 0.5 mg/dL (0.6-1.0); EST CRCL DRUG DOSING (CG) 70.9 mL/min; POTASSIUM,K 3.2 mmol/L (3.6-5.2); TROPONIN I HIGH SENSITIVITY 9.3 pg/mL (<=60.3)
[2023-02-18 17:06] LABS: A/G RATIO 0.6 (1.2-2.2); ALBUMIN 2.5 g/dL (3.4-5.0); BILIRUBIN DIRECT 0.25 mg/dL (0.0-0.2); BILIRUBIN INDIRECT 0.35; BILIRUBIN TOTAL 0.6 mg/dL (0.2-1.0); PROTEIN TOTAL,TP 6.7 g/dL (6.4-8.2)
== END 2023-02-18 17:45 | disposition home or self-care (01) ==
LOC: EEVIPCON 14:38 → JP.ED 14:38
DX: R06.02 Shortness of breath (principal); Z88.5 Allergy status to narcotic agent; Z88.8 Allergy status to other drugs, medicaments and biological substances; Z79.899 Other long term (current) drug therapy
CPT/HCPCS: 36415; 71046; 71046-26; 80048; 80076; 83690; 84484; 85025; 99284; 99285